=== PATIENT | female | born 1960 | race American Indian/Alaskan Native ===

== ENCOUNTER 2019-09-28 13:06 | Outpatient (CLI) | payer BC, SELFPAY ==
[2019-09-28 14:05] LABS: Basophils % 0.7 %; Eosinophils # 0.2 10^3/uL (0.0-0.8); Eosinophils % 2.7 %; Hematocrit 40.2 % (37.0-47.0); Hemoglobin 12.9 g/dL (11.5-15.3); Lymphocytes # 1.6 10^3/uL (0.8-4.8); Mean Corpuscular HGB Conc 32.1 g/dL (30.0-36.0); Mean Corpuscular Hemoglobin 29.7 pg (28.0-34.0); Mean Corpuscular Volume 92.4 fL (81-99); Mean Platelet Volume 10.3 fL (7.4-10.4); Monocytes # 0.4 10^3/uL (0.2-0.9); Monocytes % 7.2 %; Neutrophils # 3.4 10^3/uL (1.8-7.7); Neutrophils % 60.2 %; Nucleated Red Blood Cells % 0 %; Platelet Count 246 10^3/cmm (130-400); Red Blood Count 4.35 10^6/uL (4.1-5.3); Red Cell Distribution Width 11.5 % (12.1-15.1); White Blood Count 5.6 10^3/uL (4.0-10.0)
[2019-09-28 14:27] LABS: Alanine Aminotransferase 17 U/L (0-33); Albumin Level 4.2 g/dL (3.5-5.2); Alkaline Phosphatase 75 IU/L (35-105); Anion Gap 14.1 (5-19); Aspartate Amino Transferase 23 U/L (0-32); Blood Urea Nitrogen 11 mg/dL (6-20); Calcium 10.2 mg/dL (8.5-10.5); Carbon Dioxide 28 mmol/L (22-29); Chloride 101 mmol/L (98-107); Globulin 3.7 g/dL (1.3-4.6); Glomerular Filtration Rate 102.3 mL/min (90-130); Glucose 108 mg/dL (65-115); Osmolality Calculated 285 mOsm/kg (285-295); Potassium 4.1 mmol/L (3.5-5.1); Sodium 139 mmol/L (136-145); Total Bilirubin 0.2 mg/dL (0.15-1.2); Total Protein 7.9 g/dL (6.6-8.7)
--- NOTE | 2019-10-02 11:57 | ONC FU_ITS ---
Dr. Sotelo Patient Follow-Up Note Patient: Yvette Rivers Unit #: [id number]: 1960 Dicatated By: Alan Sotelo M.D.Date of Visit:Sep 28, 2019 Onc Med Follow-up/Prog Note Chief Complaint: Breast cancer. 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 She has a history of chronic hepatitis C and a history of ruptured cerebral aneurysm in 1988. She had presented with a palpable left breast lesion, which was felt to be superficial to the skin. Her mammogram on 02/07/2014 showed a round nodule in the upper outer posterior region of the left breast. On 03/14/2014 she underwent an excisional biopsy of the left breast by Dr. Joyner. It showed a 1.4 cm well differentiated invasive ductal carcinoma with positive margins. The prognostic profile showed ER and ND positive, both at 100%. HER-2/octy was negative, 1+ by IHC, FISH 1.1. On 03/29/14 she underwent partial mastectomy and ultrasound-guided axillary dissection. There was no residual tumor in the breast specimen, and 8 lymph nodes were negative for metastatic disease. Her disease was thus stage IA (pT1c, N0, M0). She was first seen by Dr. Hong on 04/28/2014. She had chronic neurological findings, including left facial droop, and residual mild left shoulder and left hip weakness. Those were the sequela of the previous surgery for ruptured cerebral aneurysm in 1988. Oncotype DX score was low at 9, corresponding to a 7% risk of distant recurrence at 10 years with hormonal therapy. No adjuvant chemotherapy was recommended. She was given radiation treatment to the left breast, completed on 07/11/2014 to a total dose of 5760 cGy. At that time she was perimenopausal. She began adjuvant hormonal therapy with tamoxifen in April of 2014. INTERIM HISTORY: In July 2016 she had presented to the emergency room with vaginal bleeding. Her periods had otherwise stopped within the preceeding year. She was referred to Dr. Johnson. She underwent total abdominal hysterectomy with bilateral salpingo-oophorectomy on 09/03/2016. Pathology showed benign endometrial polyp. There was no evidence of malignancy. She had initially continued tamoxifen. However, as of her follow-up visit in December 2016, her adjuvant hormonal therapy was transitioned to anastrozole 1 mg daily. She is seen for a followup visit. She has been feeling good generally. She does complain that her left leg tends to get tight, mainly in the calf area. She does not really have pain. She says her energy is great. She has normal activity. Her appetite is good. She still has some hot flashes. She has no fever or night sweats. She complains that she has dry eyes. She has no shortness of breath, cough, or chest pain. She sometimes has palpitations. She reports having occasional nausea. She has no other GI complaints. She has some urinary frequency. She has no other joint or bone pain. She does not complain of headache. She sometimes has dizziness. She has a little bit of numbness/tingling in her left hand. She has no other focal neurologic symptoms. Medications: Advil PM 1 Tablet (of 200-38 mg) Oral daily PRN, Aspirin 1 Tablet (of 81 mg) Oral PRN, Melatonin 1 Tablet (of 10 mg) Oral PRN, Multivitamin Adults 1 Tablet Oral daily Allergies: No Known Allergies. Review of Systems: Constitutional - She says her energy is great. She has normal activity. Her appetite is good. She has not had fever. She still has some hot flashes. ECOG score is 0, Eyes - She complains that her eyes are dry, ENMT - No sinus congestion/drainage. No mouth sores or dry mouth. No sore throat or difficulty swallowing, Hematologic/Lymphatic - No abnormal bruising or bleeding, Respiratory - No shortness of breath. No cough. No pleuritic pain or hemoptysis, Cardiovascular - No angina pain. She occasionally has palpitations, Gastrointestinal - No nausea or vomiting. No heartburn or acid reflux. No diarrhea or constipation. No blood in the stool or black stools, Genitourinary (F) - No dysuria or hematuria. She has frequent urination. No urgency or incontinence, Musculoskeletal - No joint or bone pain, Integumentary - , Neurologic - No headache. She sometimes has dizziness. No numbness/paresthesias or other focal neurologic symptoms, Psychiatric - No anxiety or depression. She sleeps okay with melatonin. Vital Signs: Performed on Sep 28, 2019 15:36 Height - 64.00 in Weight - 128.6 lbs (LOW) BSA - 1.62 sq.m BMI - 22.07 Temperature - 97.6 F (LOW) Pulse - 96 /min Respiration - 19 /min BP - 110/70 mm(hg) O2 Sat - 96 % Pain - 0 Physical Examination: Constitutional - She looks pretty good generally, Eyes - Sclerae nonicteric. Conjunctivae clear, ENMT - No lesions noted in the oral cavity, Hematologic/Lymphatic - No cervical or clavicular adenopathy, Respiratory - Lungs are clear with good air movement bilaterally, Cardiovascular - Heart rythm is regular. There is no murmur, gallop, or rub noted, Breasts - There are no breast masses noted. There is no axillary adenopathy, Abdomen - Soft. Liver and spleen are not enlarged. There is no abdominal mass or ascites noted and there is no inguinal adenopathy, Extremities - No edema. Her calves feel soft and there is no calf tenderness present, Neurologic - She has residual left hemiparesis. Lab/Imaging: Test performed on Sep 28, 2019 13:25 Sodium 139 mmol/L Potassium 4.1 mmol/L Chloride 101 mmol/L CO2 28 mmol/L Anion Gap 14.1 BUN 11 mg/dL Creatinine 0.6 mg/dL Cr Clearance (Est) 92.97 mL/min eGFR 102.3 mL/min Glucose 108 mg/dL Calcium 10.2 mg/dL Protein, Total 7.9 g/dL Albumin 4.2 g/dL Globulin 3.7 g/dL Bilirubin, Total 0.2 mg/dL ALT (SGPT) 17 U/L AST (SGOT) 23 U/L Alkaline Phosphatase 75 IU/L WBC 5.6 10 3/uL RBC 4.35 10 6/uL HGB 12.9 g/dL HCT 40.2 % MCV 92.4 fL MCH 29.7 pg MCHC 32.1 g/dL RDW 11.5 % Platelet Count 246 10 3/cmm MPV 10.3 fL Neutrophils 3.4 10 3/uL Lymphocytes 1.6 10 3/uL Monocytes 0.4 10 3/uL Eosinophils 0.2 10 3/uL Basophils 0.0 10 3/uL Neutrophil % 60.2 % Lymphocyte % 29.0 % Monocyte % 7.2 % Eosinophil % 2.7 % Basophils % 0.7 % Impression: 1. Patient with grade 1 invasive ductal carcinoma of the left breast, stage IA (T1c, N0, M0), ER/ND positive and HER-2/coty negative. Oncotype DX score returned at 9, corresponding to a 7% risk of distant recurrence at 10 years following tamoxifen therapy. Adjuvant chemotherapy was not recommended. She was perimenopausal at initial diagnosis. 2. She underwent excisional biopsy of the left breast on 03/14/2014 followed by partial left mastectomy with axillary lymph node sampling on 03/29/2014. 3. She was given adjuvant radiation to the left breast completed on 07/11/2014 to 5760 cGy. 4. Adjuvant hormonal therapy with tamoxifen 20 mg daily began in April 2014. Her other medical illnesses include: 5. She has a history of hepatitis C, most likely transfusion related. 6. 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 In July 2016 she had presented with vaginal bleeding. She underwent WENDY/BSO on 09/03/2016. Pathology showed endometrial polyp. There was no malignancy. She subsequently continued taking tamoxifen. However, as of her follow-up visit in December 2016 her adjuvant hormonal therapy was transitioned to anastrozole 1 mg daily. She has since then continued the anastrozole with no significant adverse effects and no evidence of recurrence of breast cancer. She has now completed close to 3 years of treatment with anastrozole and more than 5 years of total adjuvant hormonal therapy. Plan: In the setting of low risk disease with more than 5 years of adjuvant hormonal therapy completed, she is advised to stop the anastrozole now. She can continue her regular follow-up with Dr. Joyner. I will just see her again as needed. Signed By: Alan Sotelo M.D. <<Signature on File>>
== END 2019-09-28 13:07 | disposition home or self-care (01) ==
LOC: ONCMED 13:12
PROVIDERS: Visit Provider Internal Medicine Medical Oncology
DX: C50.412 Malignant neoplasm of upper-outer quadrant of left female breast (principal); Z17.0 Estrogen receptor positive status [ER+]; Z79.82 Long term (current) use of aspirin; Z79.811 Long term (current) use of aromatase inhibitors; Z90.12 Acquired absence of left breast and nipple; Z86.19 Personal history of other infectious and parasitic diseases; Z92.3 Personal history of irradiation
CPT/HCPCS: 80053; 85025; 99214

== ENCOUNTER → 2020-11-15 15:03 | Outpatient (BNVA) | payer BC, SELFPAY | PROVIDERS: PCP Pediatrics; Referring Provider Pediatrics; Visit Provider Nurse Practitioner Family | DX: N32.81 Overactive bladder (principal); R35.0 Frequency of micturition; N39.41 Urge incontinence | CPT/HCPCS: 81003 ==

== ENCOUNTER → 2021-01-16 15:09 | Outpatient (BNVA) | payer BC, SELFPAY | PROVIDERS: PCP Pediatrics; Visit Provider Nurse Practitioner Family | DX: R35.0 Frequency of micturition (principal); R39.15 Urgency of urination | CPT/HCPCS: 81003 ==

== ENCOUNTER → 2021-07-18 14:04 | Outpatient (BNVA) | payer BC, SELFPAY | PROVIDERS: PCP Pediatrics; Visit Provider Nurse Practitioner Family | DX: N39.41 Urge incontinence (principal) | CPT/HCPCS: 81003 ==